=== PATIENT | male | born 1950 | race Caucasian/White ===

== ENCOUNTER → 2016-08-11 | Outpatient (CLI) | payer MEDICARE, OTHER | LOC: LAB 09:43 | PROVIDERS: Internal Medicine Nephrology | DX: N18.3 Chronic kidney disease, stage 3 (moderate) (principal) | CPT/HCPCS: 36415; 80048 ==

== ENCOUNTER → 2016-09-12 | Outpatient (CLI) | payer MEDICARE, OTHER | LOC: LAB 13:22 | PROVIDERS: Internal Medicine Nephrology | DX: N18.9 Chronic kidney disease, unspecified (principal); E87.6 Hypokalemia | CPT/HCPCS: 36415; 80048 ==

== ENCOUNTER → 2016-09-22 | Outpatient (CLI) | payer MEDICARE, OTHER | LOC: KOH-I 09-20 10:45 | DX: K74.60 Unspecified cirrhosis of liver (principal) | CPT/HCPCS: 76700 ==

== ENCOUNTER → 2020-09-12 | Outpatient (CLI) | payer MEDICARE, OTHER ==
[~2020-09-12] MED LIST: ALDACTONE25 MG PO; ALDACTONE50 MG PO; AMBIEN10 MG PO; ASPIRIN CHEWABL81 MG PO; CEPHALEXIN500 MG PO; CHANTIX1 MG PO; COREG6.25 MG PO; COZAAR 50MG TAB50 MG PO; DULERA 200 MCG8.8 GM INH; ENULOSE10 GM/15 M PO; EYE ITCH RELIEF5 ML OP; FERROUS SULFAT325 MG PO; FOLIC ACID 1 MG1 MG PO; KLOR-CON M1010 MEQ PO; LASIX40 MG PO; LASIX80 MG PO; LIPITOR TAB 2020 MG PO; NITROSTAT0.4 MG SL; NORVASC10 MG PO; OXYCODONE HCL10 MG PO; OXYCODONE HCL5 MG PO; PANTOPRAZOLE SO40 MG PO; PLAVIX 75 MG TA75 MG PO; PRINIVIL5 MG PO; PROAIR HFA8.5 GM INH; TENORMIN 25 MG25 MG PO; ZOLPIDEM TART12.5 MG PO; ZYLOPRIM 100 M100 MG PO
[2020-09-12 12:44] LABS: HEMOGLOBIN 15.3 gm/dl (14.0-17.5); WHITE BLOOD COUNT 8.2 K/UL (4.5-11.0)
== END ==
LOC: LAB 12:15
PROVIDERS: Family Medicine
DX: E78.5 Hyperlipidemia, unspecified (principal); I10 Essential (primary) hypertension; Z12.5 Encounter for screening for malignant neoplasm of prostate; E55.9 Vitamin D deficiency, unspecified
CPT/HCPCS: 80053; 80061; 84439; 84443; 85027; G0103

== ENCOUNTER → 2021-01-13 | Outpatient (CLI) | payer MEDICARE, OTHER | LOC: KOH-I 08:00 | DX: F17.210 Nicotine dependence, cigarettes, uncomplicated (principal); R91.8 Other nonspecific abnormal finding of lung field | CPT/HCPCS: 71271 ==

== ENCOUNTER 2021-03-23 17:43 | Inpatient (IN) | payer MEDICARE, OTHER ==
[~2021-03-23] VITALS: Ht 172.7 cm; Wt 92.5 kg
[~2021-03-23 17:43] MED LIST changes: -OXYCODONE HCL5 MG PO; +ROXICODONE TAB 55 MG PO
[2021-03-23 18:45] LABS: RED BLOOD COUNT 4.07 M/UL (4.20-5.50); WHITE BLOOD COUNT 7.6 K/UL (4.5-11.0)
[2021-03-23 19:02] LABS: BUN/CREATININE RATIO 10 (0-10)
[2021-03-23] MEDS ORDERED: ACTOS30 MG PO (22:49)
[2021-03-23] MEDS ORDERED: ATORVASTATIN CA40 MG PO (23:20)
[2021-03-24 06:25] LABS: HEMOGLOBIN 12.3 gm/dl (14.0-17.5); RED BLOOD COUNT 3.93 M/UL (4.20-5.50)
[2021-03-27] MEDS ORDERED: VITAMIN B-COMP1 EAC3 PO (10:14)
[2021-03-27] MEDS ORDERED: CARVEDILOL3.125 MG PO (10:14)
[2021-03-27] MEDS ORDERED: BUMETANIDE1 MG PO (10:16)
--- NOTE | 2021-03-27 10:28 | NUR ---
At approximately 0930 patient had removed nasal cannula and sat in the bedside chair. O2 Sat immediately plummeted to 79%. Oxygen was adminstered via nasal cannula again to keep the patient stable.
--- NOTE | 2021-03-27 15:15 | NUR ---
Attempted to contact home health to give report. No answer after several attempts. Message left to [facility] to return call.
== END 2021-03-27 14:00 | disposition home health service (06) | DRG 291 ==
LOC: ER1 17:43 → MED SURG 4 22:03 → CDU 22:03 → MED SURG 4 22:48
PROVIDERS: Internal Medicine; Physician Assistant; ADMIT Internal Medicine
PROC: B24BZZ4 Ultrasonography of Heart with Aorta, Transesophageal (ICD-10-PCS; principal; 2021-03-25)
DX: I13.0 Hypertensive heart and chronic kidney disease with heart failure and stage 1 through stage 4 chronic kidney disease, or unspecified chronic kidney disease (principal); J96.01 Acute respiratory failure with hypoxia; I50.43 Acute on chronic combined systolic (congestive) and diastolic (congestive) heart failure; I48.19 Other persistent atrial fibrillation; Z20.822 Contact with and (suspected) exposure to COVID-19; J44.9 Chronic obstructive pulmonary disease, unspecified; K74.60 Unspecified cirrhosis of liver; F17.210 Nicotine dependence, cigarettes, uncomplicated; F19.10 Other psychoactive substance abuse, uncomplicated; I27.20 Pulmonary hypertension, unspecified; I35.0 Nonrheumatic aortic (valve) stenosis; N18.30 Chronic kidney disease, stage 3 unspecified; Z99.81 Dependence on supplemental oxygen; Z95.4 Presence of other heart-valve replacement; Z87.11 Personal history of peptic ulcer disease; Z98.890 Other specified postprocedural states; Z83.3 Family history of diabetes mellitus; Z79.01 Long term (current) use of anticoagulants; Z79.899 Other long term (current) drug therapy; Z79.82 Long term (current) use of aspirin
CPT/HCPCS: ECHO; 0240U; 36415; 36600; 71045; 71046; 80048; 80053; 82550; 82553; 82803; 82962; 83735; 83874; 83880; 84484; 85025; 93005; 93306; 94640; 94664; 94760; 96374; 99285; J1940

== ENCOUNTER → 2021-05-12 | Outpatient (CLI) | payer MEDICARE, OTHER ==
[~2021-05-12] MED LIST changes: +ACTOS30 MG PO; +ATORVASTATIN CA40 MG PO; +BUMETANIDE1 MG PO; +CARVEDILOL3.125 MG PO; +VITAMIN B-COMP1 EAC3 PO
[2021-05-12 12:50] LABS: HEMOGLOBIN 10.2 gm/dl (14.0-17.5); RED BLOOD COUNT 3.26 M/UL (4.20-5.50); WHITE BLOOD COUNT 6.9 K/UL (4.5-11.0)
== END ==
LOC: LAB 12:16
PROVIDERS: Family Medicine
DX: E78.5 Hyperlipidemia, unspecified (principal); E55.9 Vitamin D deficiency, unspecified
CPT/HCPCS: 36415; 80053; 80061; 84439; 84443; 85027

== ENCOUNTER 2021-08-02 16:12 | Emergency (ER) | payer MEDICARE, OTHER ==
[2021-08-02 17:55] LABS: HEMOGLOBIN 10.9 gm/dl (14.0-17.5); RED BLOOD COUNT 3.53 M/UL (4.20-5.50); WHITE BLOOD COUNT 7.8 K/UL (4.5-11.0)
[2021-08-02 18:08] LABS: BUN/CREATININE RATIO 19 (0-10)
== END 2021-08-02 18:30 | disposition left against medical advice (07) ==
LOC: ER1 16:12
PROVIDERS: Physician Assistant
DX: R41.82 Altered mental status, unspecified (principal); R82.5 Elevated urine levels of drugs, medicaments and biological substances; E11.9 Type 2 diabetes mellitus without complications; I10 Essential (primary) hypertension; V89.2XXA Person injured in unspecified motor-vehicle accident, traffic, initial encounter; Y92.410 Unspecified street and highway as the place of occurrence of the external cause
CPT/HCPCS: 70450; 71045; 80053; 80307; 81001; 82550; 82553; 84484; 85025; 93005; 99283; G0480; J2310

== ENCOUNTER → 2021-08-16 | Outpatient (CLI) | payer MEDICARE, OTHER ==
[2021-08-16 16:10] LABS: HEMOGLOBIN 11.8 gm/dl (14.0-17.5); RED BLOOD COUNT 3.87 M/UL (4.20-5.50); WHITE BLOOD COUNT 7.8 K/UL (4.5-11.0)
[2021-08-16 16:54] LABS: BUN/CREATININE RATIO 11 (0-10)
== END ==
LOC: LAB 15:44
PROVIDERS: Family Medicine
DX: D64.9 Anemia, unspecified (principal); E11.9 Type 2 diabetes mellitus without complications; R39.12 Poor urinary stream
CPT/HCPCS: 36415; 80053; 80061; 82728; 83036; 83540; 83550; 84153; 85025